=== PATIENT | female | born 1970 | race Caucasian/White ===

== ENCOUNTER 2020-01-26 03:23 | Inpatient (IN) | payer BC ==
[2020-01-26] MEDS ORDERED: NORMAL SALINE 1000 ML 1,000 ML IV ONE (03:48)
[2020-01-26 03:57] LABS: VENOUS BLOOD BASE EXCESS 4.9 mmol/L; VENOUS BLOOD HCO3 30.6 mmol/L (20-32); VENOUS BLOOD PCO2 49.2 mmHg (35-63); VENOUS BLOOD PH 7.41 (7.30-7.42)
[2020-01-26 04:04] LABS: ABSOLUTE BASOPHILS # (AUTO) 0.1 10^3/uL (0.0-0.2); ABSOLUTE EOSINOPHILS # (AUTO) 0.7 10^3/uL (0.0-0.6); ABSOLUTE LYMPHOCYTES (AUTO) 2.1 10^3/uL (0.5-4.7); ABSOLUTE MONOCYTES (AUTO) 1.2 10^3/uL (0.1-1.4); ABSOLUTE NEUT (AUTO) 5.9 10^3/uL (1.7-8.2); BASOPHILS % (AUTO) 0.5 % (0-2); EOSINOPHILS % (AUTO) 6.7 % (0-6); HEMATOCRIT 40.5 % (36.0-47.0); HEMOGLOBIN 13.6 g/dL (12.0-15.5); LYMPHOCYTES % (AUTO) 21.2 % (13-45); MEAN CORPUSCULAR HEMOGLOBIN 29.3 pg (27.0-33.4); MEAN CORPUSCULAR HGB CONC 33.6 g/dL (32.0-36.0); MEAN CORPUSCULAR VOLUME 87 fl (80-97); MONOCYTES % (AUTO) 11.8 % (3-13); PLATELET COUNT 236 10^3/uL (150-450); RED BLOOD COUNT 4.65 10^6/uL (3.72-5.28); RED CELL DISTRIBUTION WIDTH 13.7 % (11.5-14.0); SEGMENTED NEUTROPHILS % (AUTO) 59.8 % (42-78); TOTAL CELLS COUNTED % (AUTO) 100 %; WHITE BLOOD COUNT 9.9 10^3/uL (4.0-10.5)
--- NOTE | 2020-01-26 04:07 | ER Document Report ---
ED General - General TRAVEL OUTSIDE OF THE [place] IN LAST 30 DAYS: No - Related Data Home Medications: Losartan, HCTZ, Synthroid, simvastatin, duloxetine <WESLEY CHING - Last Filed: 01/26/20 06:19> <JACIEL LOZA - Last Filed: 01/26/20 06:51> - General Chief Complaint: Shortness Of Breath Stated Complaint: SHORTNESS OF BREATH Time Seen by Provider: 01/26/20 03:31 - HPI Notes: Patient is a 49-year-old female who presents to the emergency department for evaluation of cough, shortness of breath. She states that she was diagnosed with pneumonia back in December. She was treated first with Zithromax, then with Augmentin. She continued to use her albuterol. She states she got somewhat better, but never really thought she improved to baseline. She states she started feeling worse again recently. She was seen at an urgent care, was told that the chest x-ray was clear. She was started on doxycycline. She took that for several days, and then called her doctor's office, stated she was not feeling any better. She was started on Zithromax again. The patient presents here because she is feeling short of breath. She states that she has not had any fevers to her knowledge, but admits she has been taking Naprosyn. She has had a productive cough. No nausea or vomiting. Eating and drinking normally. She has not traveled outside of the area, denies any known COVID exposures, but is currently a PUI, having been tested for COVID on Saturday. (WESLEY CHING) - Related Data Allergies/Adverse Reactions: No Known Allergies Allergy (Verified 01/26/20 04:00) Past Medical History - General Information source: Patient - Social History Smoking Status: Current Every Day Smoker Family History: Other - Unknown, patient is adopted - Past Medical History Cardiac Medical History: Reports: Hx Hypercholesterolemia, Hx Hypertension Neurological Medical History: Reports: Hx Migraine Endocrine Medical History: Reports: Hx Hypothyroidism Renal/ Medical History: Denies: Hx Peritoneal Dialysis Psychiatric Medical History: Reports: Hx Depression <WESLEY CHING - Last Filed: 01/26/20 06:19> Review of Systems - Review of Systems Constitutional: Weakness Respiratory: See HPI -: Yes All other systems reviewed and negative <WESLEY CHING - Last Filed: 01/26/20 06:19> Physical Exam <WESLEY CHING - Last Filed: 01/26/20 06:19> - Vital signs Vitals: Temp Pulse Resp BP Pulse Ox 98.5 F 107 H 19 173/114 H 88 L 01/26/20 03:29 01/26/20 03:29 01/26/20 03:29 01/26/20 03:29 01/26/20 03:29 - Notes Notes: Vital signs reviewed, please refer to chart. Patient initially 88 to 90% on room air, with talking became more hypoxic. Placed on 2 L, oxygenation improved, but she became hypoxic again with conversation. Oxygen increased to 4 L. Head is normocephalic, atraumatic. Pupils equal round, reactive to light. Neck is supple without meningismus. Heart is tachycardic with normal S1, S2. Lungs reveal diminished breath sounds with rare wheeze anteriorly on the right. Abdomen is soft, nontender, normoactive bowel sounds throughout. Extremities without cyanosis, clubbing. Posterior calves are nontender. Peripheral pulses are equal. Skin is warm and dry. Patient is awake, alert, neurological exam is nonfocal. (HUMZAWESLEY Rivera) Course - Laboratory Result Diagrams: 01/26/20 03:39 01/26/20 03:39 - Diagnostic Test Radiology reviewed: Image reviewed, Reports reviewed <WESLEY CHING - Last Filed: 01/26/20 06:19> - Laboratory Result Diagrams: 01/26/20 03:39 01/26/20 03:39 <JACIEL LOZA - Last Filed: 01/26/20 06:51> - Re-evaluation Re-evalutation: 01/26/20 04:09 Patient presents to the emergency department for evaluation. As she is currently pending COVID testing, she was placed in a COVID room. Laboratory investigations, blood cultures, chest x-ray ordered. Patient does not have a history of asthma or COPD, I am not inclined to prescribe steroids at this time. She is given a liter of fluids, as I am concerned about sepsis in this mildly tachycardic patient. Awaiting laboratory investigations, patient is stable, we will continue to monitor. 01/26/20 05:32 Patient's laboratory investigations largely unremarkable. Chest x-ray was interpreted by radiology as showing no sign of infiltrate, but clinically I do believe she has 1. She was treated with IV Levaquin, as unfortunately her QT is prolonged and I do not feel comfortable administering Zithromax at this time. I spoke with Dr. Galeas. He asked that a CT angiogram be performed, given the fact that the patient has had antibiotics as an outpatient and really is not feeling improved. CT angio was ordered. 01/26/20 06:19 CT angiogram was performed. Awaiting radiology interpretation, but clear left- sided infiltrate noted. No large vessel PE noted. I spoke with Dr. Galeas, he will admit the patient for further care. (WESLEY CHING) - Vital Signs Vital signs: Temp Pulse Resp BP Pulse Ox 97.7 F 107 H 15 146/92 H 99 01/26/20 05:30 01/26/20 03:29 01/26/20 06:04 01/26/20 06:04 01/26/20 06:04 - Laboratory Laboratory results interpreted by me: 01/26/20 01/26/20 03:39 03:39 Eos % (Auto) 6.7 H Absolute Eos (auto) 0.7 H Sodium 136.4 L Carbon Dioxide 31 H - Diagnostic Test Radiology results interpreted by me: 01/26/20 05:34 Chest X-Ray 01/26/20 03:48 IMPRESSION: No active disease. 01/26/20 06:19 CT angiogram of the chest was reviewed by myself, without the aid of a radiologist. Infiltrate noted. No large vessel pulmonary embolus appreciated. (WESLEY CHING) - EKG Interpretation by Me Additional EKG results interpreted by me: 01/26/20 05:34 Sinus mechanism with rate of 91 bpm. Normal axis. Borderline prolonged QT interval. Nonspecific ST changes, but no acute changes concerning for ischemia or infarction. (WESLEY CHING) Discharge - Discharge Admitting Provider: Adal (Hospitalist) Unit Admitted: Medical Floor <WESLEY CHING - Last Filed: 01/26/20 06:19> - Discharge Admitting Provider: Adal (Hospitalist) Unit Admitted: Medical Floor <JACIEL LOZA - Last Filed: 01/26/20 06:51> - Discharge Clinical Impression: Hypoxia, Suspected COVID-19 virus infection Pneumonia Qualifiers: Pneumonia type: due to unspecified organism Laterality: bilateral Lung location: lower lobe of lung Qualified Code(s): J18.9 - Pneumonia, unspecified organism Condition: Serious Disposition: ADMITTED INPATIENT
[2020-01-26 04:23] LABS: ALBUMIN 4.1 g/dL (3.5-5.0); ALKALINE PHOSPHATASE 68 U/L (38-126); ANION GAP 5 (5-19); ASPARTATE AMINO TRANSFERASE 25 U/L (14-36); BILIRUBIN,TOTAL 0.4 mg/dL (0.2-1.3); BLOOD UREA NITROGEN 8 mg/dL (7-20); CALCIUM 9.6 mg/dL (8.4-10.2); CARBON DIOXIDE 31 mmol/L (22-30); CHLORIDE 100 mmol/L (98-107); GLUCOSE 96 mg/dL (75-110); POTASSIUM 3.8 mmol/L (3.6-5.0); TOTAL PROTEIN 7.2 g/dL (6.3-8.2)
[2020-01-26 04:24] LABS: INTERNATIONAL RATION (INR) 1.06; PROTHROMBIN TIME 13.8 SEC (11.4-15.4)
--- NOTE | 2020-01-26 05:10 | RADIOLOGY REPORT (SQ) ---
CHEST 1 VIEW on 01/26/2020 at 4:09 AM CLINICAL INDICATION: Cough, hypoxia COMPARISON: None FINDINGS: The lungs are clear. Cardiac, hilar and mediastinal contours are within normal limits. Pulmonary vascularity is within normal limits. No bony abnormality is noted. IMPRESSION: No active disease.
[2020-01-26] MEDS ORDERED: LEVOFLOXACIN 750 MG/D5W RTU 750 MG/150 ML RTUPB IV ONE (05:24)
--- NOTE | 2020-01-26 06:37 | RADIOLOGY REPORT (SQ) ---
EXAM DESCRIPTION: CT CHEST ANGIOGRAPHY WITHOUT THEN WITH IV CONTRAST COMPLETED DATE/TME: 01/26/2020 05:32 CLINICAL HISTORY: 49 years Female, dyspnea, hypoxia. CREAT 0.59 Comparison: CR, same day. Technique: IV contrast. Coronal and sagittal reformat. 3d reconstruction. This exam was performed according to our departmental dose-optimization program, which includes automated exposure control, adjustment of the mA and/or kV according to patient size and/or use of iterative reconstruction technique.[facility]: Dose Right [facility]: CareDose [facility]: Dose Right [facility]: Teradose 4D [facility]: Smart [employer] LIMITATIONS: Quality of pulmonary arteriogram: Suboptimal. Findings: Multifocal bilateral groundglass opacity lesions of both lung loredo. No pulmonary embolus. No right ventricular strain. Inferior neck, axillae, mediastinum, airway, lymphatics, heart, vasculature, upper abdomen, and musculoskeleton appear otherwise unremarkable. Impression: Commonly reported imaging features of viral pneumonia (including COVID-19 in the appropriate clinical setting) are present. Other processes such as influenza pneumonia and organizing pneumonia, as can be seen with drug toxicity and connective tissue disease, can cause a similar imaging pattern. [PneTyp]
--- NOTE | 2020-01-26 06:45 | ER Document Report ---
Doctor's Note Notes: 01/26/20 06:43 I received a call from radiology approximately 6:40 AM. They state that patient's CT is consistent with COVID infection. Patient states that she was tested the immediate preceding Saturday which would be approximately 4 days ago. At this time the results of the test are not back. I did call and inform the night hospitalist who states he will pass this on to the day hospitalist team.
[2020-01-26] MEDS ORDERED: ACETAMINOPHEN 325 MG TABLET PO PRN (08:00)
[2020-01-26] MEDS ORDERED: ONDANSETRON HCL INJ/PF 4 MG/2 ML SDV IV PRN (08:00)
[2020-01-26] MEDS ORDERED: ALBUTEROL SULFATE HFA (90 MCG/PUFF) 8 GM MDI (1 MDI/ER DISP) IH PRN (10:44)
[2020-01-26] MEDS ORDERED: GUAIFENESIN/D-METHORPHAN (200-20 MG) SYRUP 10 ML PO PRN (10:49)
[2020-01-26] MEDS ORDERED: ALBUTEROL SULFATE HFA (90 MCG/PUFF) 200 PUFF/8.5 GM MDI IH PRN ×2 (10:52→11:05)
--- NOTE | 2020-01-26 11:04 | PDOC H&P ---
History of Present Illness Admission Date/PCP: 01/26/20 06:28 IRENE HAMILTON MD Patient complains of: Shortness of breath History of Present Illness: JAYMIE VOSS is a 49 year old female with a history of hypertension, hypothyroidism, hyperlipidemia, depression, who presents to the hospital with complaints of progressive shortness of breath for the past few days. Patient's symptoms initially started with shortness of breath and cough about 1 month ago. At that time she went to [facility] and chest x-ray revealed pneumonia. She was treated with azithromycin which she said did not really help her symptoms and later subsequently treated with Augmentin which improved her symptoms. Stated that her respiratory symptoms got a lot better but then over the past 5 days her symptoms worsened in terms of increased shortness of breath and continued dry hacking cough. Denies any fever or chills. Denied any known exposures to patients with COVID-19. Last trip outside of [place] was in October 2019 to [place]. 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 Otherwise only goes to the grocery store. Denies any sick contacts. In the ER patient was noted to be hypoxic at 88% and subsequently admitted. Past Medical History Cardiac Medical History: Reports: Hyperlipidema, Hypertension Pulmonary Medical History: Denies: Asthma, Chronic Obstructive Pulmonary Disease (COPD) Neurological Medical History: Reports: Migraine Endocrine Medical History: Reports: Hypothyroidism Denies: Diabetes Mellitus Type 1, Diabetes Mellitus Type 2 Psychiatric Medical History: Reports: Depression Past Surgical History Past Surgical History: Reports: Orthopedic Surgery - left ankle Social History Information Source: Patient Lives with: Spouse/Significant other Smoking Status: Current Every Day Smoker Cigarettes Packs Per Day: 1 Number of Years Smokin Frequency of Alcohol Use: None Hx Recreational Drug Use: No Drugs: None Hx Prescription Drug Abuse: No - Advance Directive Resuscitation Status: Full Code Family History Family History: Other - Unknown, patient is adopted Parental Family History Reviewed: Yes Children Family History Reviewed: NA Sibling(s) Family History Reviewed.: NA - Patient is adopted Medication/Allergy Home Medications: Losartan/Hydrochlorothiazide [Losartan-Hctz 50-12.5 mg Tab] 1 each PO DAILY 01/29/19 Simvastatin 40 mg PO QHS 01/29/19 Albuterol Sulfate [Ventolin Hfa 8 gm Mdi (1 Mdi/ER Disp)] 2 puff IH Q4HP PRN 01/26/20 Duloxetine HCl [Cymbalta] 90 mg PO DAILY 01/26/20 Fluticasone/Salmeterol [Advair 250-50 Diskus 14 Dose/Diskus] 1 inh IH Q12 01/26/20 Levothyroxine Sodium [Synthroid] 125 mcg PO DAILY 01/26/20 Promethazine/Dextromethorphan [Promethazine-Dm Syrup] 5 ml PO Q4HP PRN 01/26/20 Sumatriptan Succinate [Imitrex 100 mg Tablet] 100 mg PO ASDIR PRN 01/26/20 Allergies/Adverse Reactions: No Known Allergies Allergy (Verified 01/26/20 04:00) Review of Systems Constitutional: ABSENT: chills, fever(s) Eyes: ABSENT: visual disturbances Nose, Mouth, and Throat: PRESENT: headache(s) Cardiovascular: PRESENT: dyspnea on exertion. ABSENT: chest pain Respiratory: PRESENT: cough, dyspnea. ABSENT: sputum Gastrointestinal: ABSENT: abdominal pain, diarrhea, nausea, vomiting Genitourinary: ABSENT: dysuria Integumentary: ABSENT: diaphoresis Neurological: ABSENT: confusion, dizziness Endocrine: ABSENT: polyuria Hematologic/Lymphatic: ABSENT: easy bleeding Allergic/Immunologic: PRESENT: other - Denies rhinorrhea or nasal congestion Physical Exam Vital Signs: Temp Pulse Resp BP Pulse Ox 98.2 F 104 H 18 139/77 H 96 01/26/20 08:04 01/26/20 08:30 01/26/20 08:04 01/26/20 08:04 01/26/20 08:04 Intake & Output 01/25/20 01/26/20 01/27/20 06:59 06:59 06:59 Intake Total 1000 150 Balance 1000 150 Weight 81.6 kg General appearance: PRESENT: no acute distress, cooperative Mouth exam: PRESENT: neck supple Neck exam: ABSENT: JVD Respiratory exam: PRESENT: symmetrical, unlabored, wheezes. ABSENT: clear to auscultation kelvin, tachypnea Cardiovascular exam: PRESENT: RRR, +S1, +S2. ABSENT: tachycardia GI/Abdominal exam: PRESENT: soft. ABSENT: rebound, rigid, tenderness Extremities exam: ABSENT: pedal edema Neurological exam: PRESENT: alert, awake, oriented to person, oriented to place, oriented to time Psychiatric exam: PRESENT: anxious - Mildly. ABSENT: agitated Focused psych exam: ABSENT: pressured speech Skin exam: ABSENT: jaundice Results Laboratory Results: 01/26/20 03:39 01/26/20 03:39 01/26/20 01/26/20 01/26/20 03:39 03:39 03:39 WBC 9.9 RBC 4.65 Hgb 13.6 Hct 40.5 MCV 87 MCH 29.3 MCHC 33.6 RDW 13.7 Plt Count 236 Seg Neutrophils % 59.8 VBG pH 7.41 VBG pCO2 49.2 VBG HCO3 30.6 VBG Base Excess 4.9 Sodium 136.4 L Potassium 3.8 Chloride 100 Carbon Dioxide 31 H Anion Gap 5 BUN 8 Creatinine 0.59 Est GFR ( Amer) > 60 Glucose 96 Lactic Acid Calcium 9.6 Total Bilirubin 0.4 AST 25 Alkaline Phosphatase 68 Total Protein 7.2 Albumin 4.1 01/26/20 03:39 WBC RBC Hgb Hct MCV MCH MCHC RDW Plt Count Seg Neutrophils % VBG pH VBG pCO2 VBG HCO3 VBG Base Excess Sodium Potassium Chloride Carbon Dioxide Anion Gap BUN Creatinine Est GFR ( Amer) Glucose Lactic Acid 0.8 Calcium Total Bilirubin AST Alkaline Phosphatase Total Protein Albumin Impressions: Chest X-Ray 01/26/20 03:48 IMPRESSION: No active disease. Assessment and Plan - Diagnosis (1) Acute respiratory failure with hypoxia Is this a current diagnosis for this admission?: Yes Plan: Hypoxic at 88% on room air. Currently on 2 L nasal cannula. May be secondary to active bronchospasms and/or pneumonia/acute bronchitis. We will continue to monitor pulse oximetry closely. O2 supplementation as needed. (2) Reactive airway disease with wheezing Is this a current diagnosis for this admission?: Yes Plan: Patient's is having active bronchospasms with wheezing noted on exam. Denies history of asthma and COPD. Has a [id number] smoking history. I will empirically treat with albuterol and steroids. (3) Pneumonia Qualifiers: Pneumonia type: due to unspecified organism Laterality: bilateral Lung location: lower lobe of lung Qualified Code(s): J18.9 - Pneumonia, unspecified organism Is this a current diagnosis for this admission?: Yes Plan: Diagnosed in the outpatient setting about a month ago at [facility] after chest x-ray was performed. Patient has tried azithromycin and Augmentin. Chest CTA showing mild amount of bilateral groundglass opacities. Uncertain if this is a resolving pneumonia versus atypical pneumonia. Will treat empirically with Levaquin while monitoring QTC which seems to be a little bit elevated. We will follow-up blood cultures. Obtaining sputum culture will be unlikely given the dryness of patient's cough. (4) Suspected COVID-19 virus infection Is this a current diagnosis for this admission?: Yes Plan: Patient was tested for COVID-[facility] last week. We will follow-up with them for the results. - Time Time Spent with patient: 25-34 minutes
[2020-01-26] MEDS ORDERED: HYDROCHLOROTHIAZIDE 12.5 MG TABLET PO ONE (11:30)
[2020-01-26] MEDS: METHYLPREDNISOLONE INJ 40 MG/1 ML SDV IV SCH ×2 (12:34→22:09)
[2020-01-26] MEDS: LOSARTAN POTASSIUM 50 MG TABLET PO SCH (12:34)
[2020-01-26] MEDS: DULOXETINE HCL 30 MG CAPSULE.DR PO SCH (12:34)
[2020-01-26] MEDS: LEVOTHYROXINE SODIUM 0.05 MG TABLET PO SCH (12:34)
[2020-01-26] MEDS: ALBUTEROL SULFATE HFA (90 MCG/PUFF) 200 PUFF/8.5 GM MDI IH SCH ×3 (12:35→23:19)
[2020-01-26] MEDS: HEPARIN SOD (PORCINE) 5,000 UNIT/ML 1 ML VIAL SUBCUT SCH ×2 (13:16→22:09)
[2020-01-26] MEDS: BENZONATATE 100 MG CAPSULE PO SCH (17:54)
[2020-01-26] MEDS ORDERED: CALCIUM CARBONATE 500 MG TAB.CHEW PO PRN (21:21)
[2020-01-26] MEDS: SIMVASTATIN 40 MG TABLET PO SCH (22:09)
[2020-01-27] MEDS: LEVOTHYROXINE SODIUM 0.05 MG TABLET PO SCH (05:23)
[2020-01-27] MEDS: HEPARIN SOD (PORCINE) 5,000 UNIT/ML 1 ML VIAL SUBCUT SCH ×3 (05:23→21:19)
[2020-01-27] MEDS: ALBUTEROL SULFATE HFA (90 MCG/PUFF) 200 PUFF/8.5 GM MDI IH SCH ×4 (05:23→23:27)
[2020-01-27 07:30] LABS: ABSOLUTE LYMPHOCYTES (AUTO) 1.7 10^3/uL (0.5-4.7); ABSOLUTE MONOCYTES (AUTO) 0.6 10^3/uL (0.1-1.4); ABSOLUTE NEUT (AUTO) 15.4 10^3/uL (1.7-8.2); BASOPHILS % (AUTO) 0.1 % (0-2); HEMATOCRIT 38.5 % (36.0-47.0); HEMOGLOBIN 12.9 g/dL (12.0-15.5); LYMPHOCYTES % (AUTO) 9.5 % (13-45); MEAN CORPUSCULAR HEMOGLOBIN 29.1 pg (27.0-33.4); MEAN CORPUSCULAR HGB CONC 33.6 g/dL (32.0-36.0); MEAN CORPUSCULAR VOLUME 87 fl (80-97); MONOCYTES % (AUTO) 3.2 % (3-13); PLATELET COUNT 259 10^3/uL (150-450); RED BLOOD COUNT 4.44 10^6/uL (3.72-5.28); RED CELL DISTRIBUTION WIDTH 13.5 % (11.5-14.0); SEGMENTED NEUTROPHILS % (AUTO) 87.2 % (42-78); TOTAL CELLS COUNTED % (AUTO) 100 %; WHITE BLOOD COUNT 17.7 10^3/uL (4.0-10.5)
--- NOTE | 2020-01-27 07:32 | EKG REPORT ---
SEVERITY:- BORDERLINE ECG - SINUS RHYTHM PROBABLE LEFT ATRIAL ABNORMALITY LOW VOLTAGE IN FRONTAL LEADS BORDERLINE PROLONGED QT INTERVAL : Confirmed by: Bayron Argueta 27-Jan-2020 07:31:58
--- NOTE | 2020-01-27 07:32 | EKG REPORT ---
SEVERITY:- ABNORMAL ECG - SINUS RHYTHM PROBABLE LEFT ATRIAL ABNORMALITY LOW VOLTAGE IN FRONTAL LEADS NONSPECIFIC T ABNORMALITIES, ANT-LAT LEADS PROLONGED QT INTERVAL : Confirmed by: Bayron Argueta 27-Jan-2020 07:31:43
[2020-01-27 07:48] LABS: ANION GAP 8 (5-19); BLOOD UREA NITROGEN 11 mg/dL (7-20); CALCIUM 9.6 mg/dL (8.4-10.2); CARBON DIOXIDE 27 mmol/L (22-30); CHLORIDE 101 mmol/L (98-107); GLUCOSE 154 mg/dL (75-110); PHOSPHORUS 3.9 mg/dL (2.5-4.5); POTASSIUM 4.3 mmol/L (3.6-5.0)
[2020-01-27] MEDS: DULOXETINE HCL 30 MG CAPSULE.DR PO SCH (09:09)
[2020-01-27] MEDS: PREDNISONE 20 MG TABLET PO SCH (09:09)
[2020-01-27] MEDS: HYDROCHLOROTHIAZIDE 12.5 MG TABLET PO SCH (09:09)
[2020-01-27] MEDS: BENZONATATE 100 MG CAPSULE PO SCH ×2 (09:10→17:20)
[2020-01-27] MEDS: LOSARTAN POTASSIUM 50 MG TABLET PO SCH (09:10)
[2020-01-27] MEDS: MAGNESIUM SULFATE/D5W 1 GM/100 ML RTUPB IV SCH ×2 (09:10→10:54)
[2020-01-27] MEDS ORDERED: DOXYCYCLINE HYCLATE INJ 100 MG VIAL IV SCH (10:00)
[2020-01-27] MEDS ORDERED: LEVOFLOXACIN 500 MG TABLET PO SCH (10:00)
[2020-01-27] MEDS: DOXYCYCLINE HYCLATE 100 MG in DEXTROSE 5%-WATER 250 ML IV SCH ×2 (11:57→21:20)
[2020-01-27] MEDS ORDERED: LORAZEPAM 1 MG TABLET PO PRN (12:20)
--- NOTE | 2020-01-27 12:32 | PDOC PROGRESS REPORT ---
Subjective Progress Note for:: 01/27/20 Subjective:: Patient states that she feels about the same in terms of her breathing. Patient denies any worsening of her breathing but does note ophthalmology needs certain improvement. Still has some cough. Discussed with her about utilizing cough syrup if needed. Patient states that her informed her to have COVID test was negative. However patient's primary RN states that she contacted the health department and was informed that the test was inconclusive. Currently awaiting our COVID test. Notably patient gets hypoxic into the upper 80s when ambulating. Reason For Visit: PNEUMONIA,HYPOXIA Physical Exam Vital Signs: Temp Pulse Resp BP Pulse Ox 97.5 F 94 26 H 134/60 H 94 01/27/20 11:49 01/27/20 11:49 01/27/20 11:49 01/27/20 11:49 01/27/20 11:49 Intake & Output 01/26/20 01/27/20 01/28/20 06:59 06:59 06:59 Intake Total 1000 3150 565 Output Total 3150 Balance 1000 0 565 Weight 81.6 kg 83.9 kg General appearance: PRESENT: no acute distress, cooperative Neck exam: ABSENT: JVD Respiratory exam: PRESENT: tachypnea, wheezes. ABSENT: accessory muscle use, crackles, retraction, unlabored Cardiovascular exam: PRESENT: RRR, +S1, +S2. ABSENT: tachycardia GI/Abdominal exam: PRESENT: soft. ABSENT: rebound, rigid, tenderness Neurological exam: PRESENT: alert, awake, oriented to person, oriented to place, oriented to time Results Laboratory Results: 01/27/20 06:17 01/27/20 06:17 01/27/20 01/27/20 06:17 06:17 WBC 17.7 H RBC 4.44 Hgb 12.9 Hct 38.5 MCV 87 MCH 29.1 MCHC 33.6 RDW 13.5 Plt Count 259 Seg Neutrophils % 87.2 H Sodium 136.4 L Potassium 4.3 Chloride 101 Carbon Dioxide 27 Anion Gap 8 BUN 11 Creatinine 0.53 Est GFR ( Amer) > 60 Glucose 154 H Calcium 9.6 Phosphorus 3.9 Magnesium 2.1 Impressions: Chest X-Ray 01/26/20 03:48 IMPRESSION: No active disease. Assessment and Plan - Diagnosis (1) Acute respiratory failure with hypoxia Is this a current diagnosis for this admission?: Yes Plan: Hypoxic at 88% on room air on admission. Currently on 3 L nasal cannula. Hypoxia noted when patient ambulates even on 2 L nasal cannula seems to drop to upper 80s. May be secondary to active bronchospasms and/or pneumonia/acute bronchitis. We will continue to monitor pulse oximetry closely. O2 supplementation as needed. (2) Reactive airway disease with wheezing Qualifiers: Asthma severity: moderate Is this a current diagnosis for this admission?: Yes Plan: Patient's is having active bronchospasms with wheezing noted on exam. Denies history of asthma and COPD. Has a [id number] smoking history. Continue empiric treatment withh albuterol and steroids. (3) Pneumonia Qualifiers: Pneumonia type: due to unspecified organism Laterality: bilateral Lung location: lower lobe of lung Qualified Code(s): J18.9 - Pneumonia, unspecified organism Is this a current diagnosis for this admission?: Yes Plan: Diagnosed in the outpatient setting about a month ago at [facility] after chest x-ray was performed. Patient has tried azithromycin and Augmentin. Chest CTA showing mild amount of bilateral groundglass opacities. Uncertain if this is a resolving pneumonia versus atypical pneumonia. Obtaining sputum culture will be unlikely given the dryness of patient's cough. Blood culture negative so far Antibiotics changed from Levaquin to doxycycline given worsening prolongation of QTC. (4) Suspected COVID-19 virus infection Is this a current diagnosis for this admission?: Yes Plan: Apparently, patient's outpatient testing was inconclusive after patient's nurse reached out to health department. Currently awaiting COVID test from yesterday. (5) Prolonged QT interval Is this a current diagnosis for this admission?: Yes Plan: Likely secondary to antibiotic use from azithromycin outpatient and possibly sumatriptan. No other offending agents noted. Will monitor EKG in the morning. We will give a dose of mag sulfate today. Avoid QT prolonging medications. Levaquin discontinued. (6) Depression with anxiety Is this a current diagnosis for this admission?: Yes Plan: Continue Cymbalta. Ativan as needed. - Time Time Spent with patient: 15-24 minutes
[2020-01-27] MEDS: SIMVASTATIN 40 MG TABLET PO SCH (21:19)
[2020-01-28 04:08] LABS: ABSOLUTE BASOPHILS # (AUTO) 0.1 10^3/uL (0.0-0.2); ABSOLUTE MONOCYTES (AUTO) 1.6 10^3/uL (0.1-1.4); ABSOLUTE NEUT (AUTO) 11.5 10^3/uL (1.7-8.2); BASOPHILS % (AUTO) 0.5 % (0-2); EOSINOPHILS % (AUTO) 0.1 % (0-6); HEMATOCRIT 35.4 % (36.0-47.0); HEMOGLOBIN 11.9 g/dL (12.0-15.5); LYMPHOCYTES % (AUTO) 18.5 % (13-45); MEAN CORPUSCULAR HEMOGLOBIN 29.3 pg (27.0-33.4); MEAN CORPUSCULAR HGB CONC 33.6 g/dL (32.0-36.0); MEAN CORPUSCULAR VOLUME 87 fl (80-97); MONOCYTES % (AUTO) 9.9 % (3-13); PLATELET COUNT 263 10^3/uL (150-450); RED BLOOD COUNT 4.06 10^6/uL (3.72-5.28); RED CELL DISTRIBUTION WIDTH 13.6 % (11.5-14.0); TOTAL CELLS COUNTED % (AUTO) 100 %; WHITE BLOOD COUNT 16.2 10^3/uL (4.0-10.5)
[2020-01-28] MEDS: LEVOTHYROXINE SODIUM 0.05 MG TABLET PO SCH (05:16)
[2020-01-28] MEDS: HEPARIN SOD (PORCINE) 5,000 UNIT/ML 1 ML VIAL SUBCUT SCH ×2 (05:17→13:10)
[2020-01-28] MEDS: ALBUTEROL SULFATE HFA (90 MCG/PUFF) 200 PUFF/8.5 GM MDI IH SCH ×2 (05:17→11:21)
[2020-01-28] MEDS ORDERED: ONDANSETRON HCL INJ/PF 4 MG/2 ML SDV IV PRN (07:30)
[2020-01-28] MEDS: PREDNISONE 20 MG TABLET PO SCH (09:06)
[2020-01-28] MEDS: HYDROCHLOROTHIAZIDE 12.5 MG TABLET PO SCH (09:06)
[2020-01-28] MEDS: DULOXETINE HCL 30 MG CAPSULE.DR PO SCH (09:06)
[2020-01-28] MEDS: BENZONATATE 100 MG CAPSULE PO SCH (09:06)
[2020-01-28] MEDS: LOSARTAN POTASSIUM 50 MG TABLET PO SCH (09:06)
[2020-01-28] MEDS: DOXYCYCLINE HYCLATE 100 MG in DEXTROSE 5%-WATER 250 ML IV SCH (09:06)
--- NOTE | 2020-01-28 10:04 | EKG REPORT ---
SEVERITY:- BORDERLINE ECG - SINUS RHYTHM PROBABLE LEFT ATRIAL ABNORMALITY LOW VOLTAGE IN FRONTAL LEADS : Confirmed by: Bayron Argueta 28-Jan-2020 10:03:34
--- NOTE | 2020-01-28 11:38 | PDOC DISCHARGE SUMMARY ---
Impression - Admit/DC Date/PCP Admission Date/Primary Care Provider: 01/26/20 06:28 IRENE HAMILTON MD Discharge Date: 01/28/20 - Discharge Diagnosis (1) Acute respiratory failure with hypoxia Is this a current diagnosis for this admission?: Yes (2) Reactive airway disease with wheezing Is this a current diagnosis for this admission?: Yes (3) Pneumonia Is this a current diagnosis for this admission?: Yes (4) Suspected COVID-19 virus infection Is this a current diagnosis for this admission?: Yes (5) Prolonged QT interval Is this a current diagnosis for this admission?: Yes (6) Depression with anxiety Is this a current diagnosis for this admission?: Yes - Additional Information Resuscitation Status: Full Code Discharge Diet: Regular Discharge Activity: Slowly Increase Activity Referrals: [facility] [Outside] (PATIENT WILL BE FOLLOWED BY [facility]. UPON D/C ON SELF QUARANTINE. ONCE CLEARED BY THEM PATIENT MAY MAKE A FOLLOW UP APPT. WITH PCP.) IRENE HAMILTON MD [Primary Care Provider] - Follow up as needed Prescriptions: Prednisone [Deltasone 20 mg Tablet] 40 mg PO DAILY 3 Days tablet Doxycycline Monohydrate 100 mg PO Q12 #8 tablet Benzonatate [Tessalon Perles 100 mg Capsule] 100 mg PO BID #10 capsule Albuterol Sulfate [Ventolin Hfa 8 gm Mdi (1 Mdi/ER Disp)] 2 puff IH TID #1 inhaler Home Medications: Losartan/Hydrochlorothiazide [Losartan-Hctz 50-12.5 mg Tab] 1 each PO DAILY 01/29/19 Simvastatin 40 mg PO QHS 01/29/19 Albuterol Sulfate [Ventolin Hfa 8 gm Mdi (1 Mdi/ER Disp)] 2 puff IH Q4HP PRN 01/26/20 Duloxetine HCl [Cymbalta] 90 mg PO DAILY 01/26/20 Fluticasone/Salmeterol [Advair 250-50 Diskus 14 Dose/Diskus] 1 inh IH Q12 01/26/20 Levothyroxine Sodium [Synthroid] 125 mcg PO DAILY 01/26/20 Promethazine/Dextromethorphan [Promethazine-Dm Syrup] 5 ml PO Q4HP PRN 01/26/20 Sumatriptan Succinate [Imitrex 100 mg Tablet] 100 mg PO ASDIR PRN 01/26/20 Albuterol Sulfate [Ventolin Hfa 8 gm Mdi (1 Mdi/ER Disp)] 2 puff IH TID #1 inhaler 01/28/20 Benzonatate [Tessalon Perles 100 mg Capsule] 100 mg PO BID #10 capsule 01/28/20 Doxycycline Monohydrate 100 mg PO Q12 #8 tablet 01/28/20 Prednisone [Deltasone 20 mg Tablet] 40 mg PO DAILY 3 Days tablet 01/28/20 History of Present Illiness History of Present Illness: JAYMIE VOSS is a 49 year old female with a history of hypertension, hypothyroidism, hyperlipidemia, depression, who presents to the hospital with complaints of progressive shortness of breath for the past few days. Patient's symptoms initially started with shortness of breath and cough about 1 month ago. At that time she went to [facility] and chest x-ray revealed pneumonia. She was treated with azithromycin which she said did not really help her symptoms and later subsequently treated with Augmentin which improved her symptoms. Stated that her respiratory symptoms got a lot better but then over the past 5 days her symptoms worsened in terms of increased shortness of breath and continued dry hacking cough. Denies any fever or chills. Denied any known exposures to patients with COVID-19. Last trip outside of [place] was in October 2019 to [place]. 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 Otherwise only goes to the grocery store. Denies any sick contacts. In the ER patient was noted to be hypoxic at 88% and subsequently admitted. Hospital Course Hospital Course: Patient admitted. Noted to be hypoxic on admission into the upper 80s on room air at rest. Patient was started on oxygen supplementation. Chest CTA revealed no evidence of blood clots but did show some bilateral mild groundglass opacities possibly infectious. Patient divulged history of recent treatment for pneumonia in the outpatient setting for the past month with about 2-3 different antibiotics. Blood cultures obtained were negative. Patient was tested for coronavirus COVID-19 in the ER and placed on the isolation. Patient was started on antibiotics. QTC was noted to be prolonged so patient was changed from Levaquin to doxycycline. QTC prolongation was suspected to be from outpatient antibiotics and possibly sumatriptan. He did receive magnesium sulfate and normalization of QTC was noted. Patient was started on treatment for reactive airway disease with albuterol inhalers and steroids. Patient's acute hypoxic respiratory failure has resolved and today I had patient ambulate back and forth around her room for over 2 minutes on room air with O2 sats maintaining above 90%. Patient is safe for discharge at this point. She has been asked to isolate at home and to follow-up with the health department for the results of her COVID-19 test. Physical Exam Vital Signs: Temp Pulse Resp BP Pulse Ox 98.0 F 81 12 135/73 H 100 01/28/20 11:23 01/28/20 11:23 01/28/20 11:23 01/28/20 11:23 01/28/20 11:23 Intake & Output 01/27/20 01/28/20 01/29/20 06:59 06:59 06:59 Intake Total 3150 2070 250 Output Total 3150 2100 Balance 0 -30 250 Weight 83.9 kg 83.9 kg General appearance: PRESENT: no acute distress, cooperative Neck exam: ABSENT: JVD Respiratory exam: PRESENT: symmetrical, unlabored, wheezes - minimal expiratory. ABSENT: tachypnea Cardiovascular exam: PRESENT: RRR, +S1, +S2. ABSENT: tachycardia GI/Abdominal exam: PRESENT: soft. ABSENT: rebound, rigid, tenderness Musculoskeletal exam: PRESENT: ambulatory Neurological exam: PRESENT: alert, awake Results Laboratory Results: WBC 16.2 10^3/uL (4.0-10.5) H 01/28/20 03:30 RBC 4.06 10^6/uL (3.72-5.28) 01/28/20 03:30 Hgb 11.9 g/dL (12.0-15.5) L 01/28/20 03:30 Hct 35.4 % (36.0-47.0) L 01/28/20 03:30 MCV 87 fl (80-97) 01/28/20 03:30 MCH 29.3 pg (27.0-33.4) 01/28/20 03:30 MCHC 33.6 g/dL (32.0-36.0) 01/28/20 03:30 RDW 13.6 % (11.5-14.0) 01/28/20 03:30 Plt Count 263 10^3/uL (150-450) 01/28/20 03:30 Lymph % (Auto) 18.5 % (13-45) 01/28/20 03:30 [place] % (Auto) 9.9 % (3-13) 01/28/20 03:30 Eos % (Auto) 0.1 % (0-6) 01/28/20 03:30 Baso % (Auto) 0.5 % (0-2) 01/28/20 03:30 Absolute Neuts (auto) 11.5 10^3/uL (1.7-8.2) H 01/28/20 03:30 Absolute Lymphs (auto) 3.0 10^3/uL (0.5-4.7) 01/28/20 03:30 Absolute Monos (auto) 1.6 10^3/uL (0.1-1.4) H 01/28/20 03:30 Absolute Eos (auto) 0.0 10^3/uL (0.0-0.6) 01/28/20 03:30 Absolute Basos (auto) 0.1 10^3/uL (0.0-0.2) 01/28/20 03:30 Seg Neutrophils % 71.0 % (42-78) 01/28/20 03:30 PT 13.8 SEC (11.4-15.4) 01/26/20 03:39 INR 1.06 01/26/20 03:39 VBG pH 7.41 (7.30-7.42) 01/26/20 03:39 VBG pCO2 49.2 mmHg (35-63) 01/26/20 03:39 VBG HCO3 30.6 mmol/L (20-32) 01/26/20 03:39 VBG Base Excess 4.9 mmol/L 01/26/20 03:39 Sodium 136.4 mmol/L (137-145) L 01/27/20 06:17 Potassium 4.3 mmol/L (3.6-5.0) 01/27/20 06:17 Chloride 101 mmol/L (98-107) 01/27/20 06:17 Carbon Dioxide 27 mmol/L (22-30) 01/27/20 06:17 Anion Gap 8 (5-19) 01/27/20 06:17 BUN 11 mg/dL (7-20) 01/27/20 06:17 Creatinine 0.53 mg/dL (0.52-1.25) 01/27/20 06:17 Est GFR ( Amer) > 60 (>60) 01/27/20 06:17 Est GFR (MDRD) Non-Af > 60 (>60) 01/27/20 06:17 Glucose 154 mg/dL (75-110) H 01/27/20 06:17 Lactic Acid 0.8 mmol/L (0.7-2.1) 01/26/20 03:39 Calcium 9.6 mg/dL (8.4-10.2) 01/27/20 06:17 Phosphorus 3.9 mg/dL (2.5-4.5) 01/27/20 06:17 Magnesium 2.1 mg/dL (1.6-2.3) 01/27/20 06:17 Total Bilirubin 0.4 mg/dL (0.2-1.3) 01/26/20 03:39 Direct Bilirubin 0.0 mg/dL (0.0-0.4) 01/26/20 03:39 Neonat Total Bilirubin Not Reportable 01/26/20 03:39 Neonat Direct Bilirubin Not Reportable 01/26/20 03:39 Neonat Indirect Bili Not Reportable 01/26/20 03:39 AST 25 U/L (14-36) 01/26/20 03:39 ALT 16 U/L (<35) 01/26/20 03:39 Alkaline Phosphatase 68 U/L (38-126) 01/26/20 03:39 Total Protein 7.2 g/dL (6.3-8.2) 01/26/20 03:39 Albumin 4.1 g/dL (3.5-5.0) 01/26/20 03:39 Impressions: Chest X-Ray 01/26/20 03:48 IMPRESSION: No active disease. Plan Time Spent: Greater than 30 Minutes Stroke Is this a Stroke Patient?: No Acute Heart Failure - Is this a Heart Failure Patient?: No
[2020-01-28 11:40] VITALS: BP 135/82
== END 2020-01-28 16:32 | disposition home or self-care (01) | DRG 193 ==
LOC: ER 03:23 → EH 06:28 → 5 08:14
PROVIDERS: ADMIT Internal Medicine; ATTEND Internal Medicine
DX: J18.9 Pneumonia, unspecified organism (principal); J96.01 Acute respiratory failure with hypoxia; J45.41 Moderate persistent asthma with (acute) exacerbation; R94.31 Abnormal electrocardiogram [ECG] [EKG]; Z03.818 Encounter for observation for suspected exposure to other biological agents ruled out; F41.8 Other specified anxiety disorders; E03.9 Hypothyroidism, unspecified; F17.210 Nicotine dependence, cigarettes, uncomplicated; I10 Essential (primary) hypertension; E78.5 Hyperlipidemia, unspecified; Z79.899 Other long term (current) drug therapy; Z79.890 Hormone replacement therapy
CPT/HCPCS: 36415; 71045; 71275; 80048; 80053; 82803; 83605; 83735; 84100; 85025; 85610; 87040; 87635; 93005; 93010; 96361; 96365; 99285; J1644; J1956; J2920; J3475; J3490; J7030; J7060; J7512